=== PATIENT | female | born 1945 | race Caucasian/White ===

== ENCOUNTER 2025-04-13 08:43 | Emergency (ER) | payer MEDICARE, SELFPAY ==
--- OUTSIDE RECORDS SUMMARY | 2025-02-24 06:15 | XMS_ITS ---
Author Organization [facility] Address [address] [place] [address] Care Team Providers Care Rotary Drill Operator Name Role Phone Ofelia Hansen Primary Care Provider Unavailabl Humphrey Mcconnell Unavailable [phone] Encounters Encounter Location Date Provider Diagnosis [address] [address] 02/24/2025 Humphrey Parekh Plan Of Treatment Next Appt Details Provider Name:Humphrey Parekh , 04/28/2025 12:30:00 PM, [address] [place] [address], [phone], Progress Notes * Diann GALLEGO MDOB: [birth year] (79 yo F)Acc No.[id number]:02/24/2025 Progress Notes Patient: Charlotte JOSEMoniqueDiann Fazal Provider: Holli Parekh DPM :1945 A ge:79 Y S ex:Female Date:02/24/2025 Address:[address] [id number] Pcp:Ofelia Hansen Subjective: * Chief Complaints: * * Medical History: Objective: * Vitals: Assessment: Plan: * Treatment: * Images: * The named appointment provid er may or may not be the originator of this progress note, and it is not deemed complete until electronically signed by the appointment provider. Sign off status: Pending * Provider: Holli Parekh DPM Date: 0 02/24/2025 Generated for Charleen ogden/Kecia/Juanjo on: 0 04/13/2025 10:47 AM EDT
--- NOTE | ~2025-04-13 | US_ITS ---
EXAMINATION: US TRIPLEX LOWER EXTREMITY, RIGHT CLINICAL INFORMATION: Pain and swelling, right lower extremity COMPARISON: None available. TECHNIQUE: Color-flow triplex imaging with spectral analysis and compression Doppler were performed on the right lower extremity. FINDINGS: Respiratory variation, normal compression and augmented flow are demonstrated in the interrogated right common femoral vein, superficial femoral vein, profunda femoral vein, popliteal vein and midcalf peroneal and posterior tibial venous segments . There is no Azevedo's cyst. US/US venous duplex LE RT IMPRESSION: No acute deep venous thrombosis interrogated veins, right lower extremity. Negative for DVT. Electronically signed by: Jose L العلي MD 04/13/2025 11:25 AM EDT
[2025-04-13 09:07] VITALS: BP 129/65; PULSE 71; RESP 18; TEMP 36.8; O2SAT 93; BMI 28.7
--- NOTE | 2025-04-13 09:18 | ED.GENADULT ---
HPI - General Adult General Chief complaint: General Medical Stated complaint: Blood clot? Sent by Time Seen by Provider: 04/13/25 10:04 Related Data Previous Rx's ?Medication ?Instructions ?Recorded cephalexin 500 mg capsule 500 mg PO QID #28 caps 04/13/25 Allergies Allergy/AdvReac Type Severity Reaction Status Date / Time tetracycline Allergy Hives Verified 04/13/25 09:11 budesonide (From Symbicort) AdvReac Unknown Verified 04/13/25 09:11 formoterol (From Symbicort) AdvReac Unknown Verified 04/13/25 09:11 [facility] Social History Social History Advance Directives: No Advance Directives Information Provided: Yes Physical Exam ED Vital Signs: Vital Signs - 24 hr 04/13/25 09:07 Temperature 98.2 F Pulse Rate 71 Respiratory Rate 18 Blood Pressure 129/65 Pulse Oximetry 93 Oxygen Delivery Method Room Air BMI result Body Mass Index 28.7 Course Course Course Narrative: 79 yo female with PMH afib and asthma of now with inflammed area on R thigh for a few days she was sent by PCP for DVT US. She is already on eliquis. She notes it is red raised and warm to touch. It is not itchy. She has no CP/SOB. labs, DVT study this is a RAPID medical screening exam the rest of the history and physical exam is to be done by the main provider. ALEJANDRO 04/13/25 919am Medical Decision Making Lab Data 04/13/25 09:31 04/13/25 09:31 Labs: Lab Results 04/13/25 Range/Units 09:31 WBC 11.5 H (4.8-10.8) X10*3/uL RBC 4.63 (4.20-5.50) X10*6/uL Hgb 14.6 (12.0-16.0) g/dl Hct 41.2 (37.0-47.0) % MCV 89.0 (80.0-98.0) fL MCH 31.5 (27.0-33.0) pg MCHC 35.4 H (31.0-35.0) g/dl RDW 12.8 (11.0-16.0) % Plt Count 218 (160-400) X10*3/uL MPV 10.5 (9.4-12.3) fL Absolute Nucleated RBC 0.000 (0.0-0.012) X10*3/uL Nucleated RBC % (auto) 0.0 (0.0-0.2) /100WBC PT 16.2 H (10.9-12.4) SEC INR 1.4 H (0.9-1.1) Sodium 129 L (135-145) mmol/L Potassium 3.7 (3.3-5.1) mmol/L Chloride 90 L (96-108) mmol/L Carbon Dioxide 31 H (22-29) mmol/L Anion Gap 12 (12-20) BUN 14 (9-16) mg/dL Creatinine 0.90 (0.5-1.4) mg/dL Estim Creat Clear Calc 53.3 Estimated GFR > 60 Random Glucose 114 (60-115) mg/dL Calcium 9.4 (8.4-10.2) mg/dL Magnesium 1.5 L (1.6-2.6) mg/dL Total Bilirubin 1.5 H (0.0-1.0) mg/dL AST 37 H (5-31) U/L ALT 22 (0-31) U/L Alkaline Phosphatase 49 (39-117) U/L Total Protein 7.0 (6.5-8.0) g/dL Albumin 4.0 (3.5-5.0) g/dL Discharge Plan Discharge Clinical Impression: Cellulitis of leg, right, Acute hyponatremia Patient Disposition: Home, Self-Care Instructions: Cellulitis (ED), Hyponatremia (ED) Additional Instructions: Your ultrasound does not show any evidence of blood clots. It appears that you have a mild skin infection called cellulitis. I recommend taking cephalexin 4 times daily for 1 week. You may continue warm compresses Incidentally, your blood work showed that your sodium was low in your magnesium was low. This is likely due to drinking lots of fluids well being on 2 diuretics, spironolactone and hydrochlorothiazide I recommend drinking no more than 4 glasses of water per day and call your doctor to schedule repeat labs next week to check your sodium and magnesium Prescriptions: New cephalexin 500 mg capsule 500 mg PO QID Qty: 28 0RF Print Language: Solomon Islander
[2025-04-13 09:39] LABS: Hematocrit 41.2 % (37.0-47.0); Hemoglobin 14.6 g/dl (12.0-16.0); Mean Corpuscular HGB Conc 35.4 g/dl (31.0-35.0); Mean Corpuscular Hemoglobin 31.5 pg (27.0-33.0); Mean Corpuscular Volume 89.0 fL (80.0-98.0); NRBC Abs Auto 0.000 X10*3/uL (0.0-0.012); NRBC Pct Auto 0.0 /100WBC (0.0-0.2); Platelet Count 218 X10*3/uL (160-400); Red Blood Count 4.63 X10*6/uL (4.20-5.50); White Blood Count 11.5 X10*3/uL (4.8-10.8)
[2025-04-13 09:44] LABS: INTERNATIONAL NORM RATIO 1.4 (0.9-1.1); Prothrombin Time 16.2 SEC (10.9-12.4)
[2025-04-13 10:00] VITALS: BP 122/62; PULSE 74; RESP 17; TEMP 36.8; O2SAT 94
[2025-04-13 10:03] LABS: Alanine Aminotransferase 22 U/L (0-31); Albumin Level 4.0 g/dL (3.5-5.0); Alkaline Phosphatase 49 U/L (39-117); Anion Gap 12 (12-20); Aspartate Amino Transferase 37 U/L (5-31); Blood Urea Nitrogen 14 mg/dL (9-16); Calcium 9.4 mg/dL (8.4-10.2); Carbon Dioxide 31 mmol/L (22-29); Chloride 90 mmol/L (96-108); Creatinine Clr Calc Pharmacy 53.3; Estimated Glomerular Filt Rate > 60; Magnesium 1.5 mg/dL (1.6-2.6); Potassium 3.7 mmol/L (3.3-5.1); Sodium 129 mmol/L (135-145); Total Protein 7.0 g/dL (6.5-8.0)
--- OUTSIDE RECORDS SUMMARY | 2025-04-13 10:47 | XMS_ITS | Patient Health Record ---
Author Organization [facility] Address [address] [place] [address] Care Team Providers Care Combo Welder Name Role Phone Ofelia Hansen Primary Care Provider Humphrey Franco Unavailable [phone] Allergies Allergen (clinical drug ingredient) Drug/Non Drug Allergy documented on EMR Reaction Allergy Type Onset Date Status budesonide / formoterol Symbicort Unknown Drug Allergy Active tetracycline Tetracycline HCl Unknown Drug Allergy Active Reason For Referral No Information Medications Medication SIG (Take, Route, Frequency, Duration) Notes Start Date End Date Status Cephalexin 500 MG 1 capsule Orally 4 times a day; Duration: 10 days Active Celecoxib 200 MG 1 capsule with food Orally Once a day; Duration: 30 day(s) Active Omeprazole 20 MG 1 capsule 30 minutes before morning meal Orally Once a day; Duration: 30 day(s) Active Multivitamin Active Mirtazapine 15 MG 1 tablet before bedtime in the evening Orally Once a day Active Metoprolol Succinate ER 25 MG TAKE 1 TABLET BY MOUTH ONCE DAILY Oral; Duration: 30 [id number],Unavaila ble Active Alvesco 160 MCG/ACT 1 puff Inhalation Twice a day Active Vitamin E Not-Taking Atorvastatin Calcium 20 MG 1 tablet Orally Once a day Active Vitamin D3 Active Alendronate Sodium 70 MG 1 tablet 30 minutes before the first food, beverage or medicine of the day with plain water Orally; Duration: 30 day(s) Active Spironolactone-HCTZ 25-25 MG 1 tablet Orally Once a day; Duration: 30 day(s) Active ProAir HFA prn Active Glucosamine Active Eliquis 5 MG as directed Orally Active Clopidogrel Bisulfate 75 MG 1 tablet Orally Once a day Not-Taking amLODIPine Besylate 5 MG 1 tablet Orally Once a day Not-Taking Immunizations Vaccine Route Administration Date Status Comme nts Influenza Unknown 04/17/2022 Administered Influenza Unknown 05/17/2024 Administered Pneumococcal Unknown 04/17/2022 Administered COVID-19 Pfizer BioNTech Vaccine Unknown 05/18/2021 Administered 1st 09/21/2020 2nd 10/12/2020 Social History Tobacco Use: Social History Observation Description Date Details (start date - stop date) Never Smoker NA - NA Tobacco use other than smoking: Question Answer Notes Are you an other tobacco user? No Tobacco Control (Standard) Question Answer Notes Tobacco use: Nonsmoker Additional Findings: Tobacco non-user Current no nsmoker AUDIT-C (Standard) Question Answer Notes Did you have a drink containing alcohol in the p ast year? No Points 0 Interpretation Negative Problems Problem Type SNOMED Code ICD Code Onset Dates Problem Status W/U Status Risk Notes Problem Bilateral atherosclerosis of arteries of lower limbs (disorder) ([id number] ) Atherosclerosis of galena artery of both lower extremities, with unspecified presence of clinical manifestation (I70.203) Active confirmed Q7(A), Q8(2B), Q9(1B,2 C) Vital Signs Blood pressure diastolic 60 mm Hg 02/03/2025 Height 5 ft 7in in 02/03/2025 Blood pressure systolic 128 mm Hg 02/03/2025 Weight 172 lbs 02/03/2025 BMI 26.94 kg/m2 02/03/2025 Procedures Procedure Date Ordered Date Performed Result Body Sit e 21702-FZXOBCB NAIL, 6 OR MORE 04/15/2024 N/A 79167-Tgfl Destruction, 1-14 04/15/2024 N/A 44067-Wymvdjhv Plate 04/15/2024 N/A 35102-ZMJH SKIN LESIONS, 2 TO 4 04/15/2024 N/A 24912-Nqju Destruction, 1-14 05/17/2024 N/A 68209-OVZNRGR NAIL, 6 OR MORE 07/22/2024 N/A 21406-Cldt Destruction, 1-14 07/22/2024 N/A 44903-Eabfhgme Plate 07/22/2024 N/A 54691-VEJG SKIN LESIONS, 2 TO 4 07/22/2024 N/A 17342-EYXFWRV NAIL, 6 OR MORE 10/25/2024 N/A 34726-UODD SKIN LESIONS, OVER 4 10/25/2024 N/A 59811-LLYLTTR NAIL, 6 OR MORE 01/24/2025 N/A 97354-RCXN SKIN LESIONS, OVER 4 01/24/2025 N/A 98837 I&D ABSCESS- SIMPLE,SINGLE 02/03/2025 N/A Encounters Encounter Location Date Provider Diagnosis [address] [address] 04/15/2024 Humphreynacho McdonaldIzabella Atherosclerosis of galena artery of both lower extremities, with unspecified presence of clinical manifestation I70.203 ; Plantar wart B07.0 ; Tinea unguium B35.1 ; Pain in right toe(s) M79.674 ; Pain in left toe(s) M79.675 ; Pain in right foot M79.671 and Ingrown nail L60.[address] [address] 05/17/2024 Humphrey Izabella Right foot pain M79. 671 and Plantar wart B07.[address] [address] 07/22/2024 Humphrey Izabella Atherosclerosis of galena artery of both lower extremities, with unspecified presence of clinical manifestation I70.203 ; Plantar wart B07.0 ; Tinea unguium B35.1 ; Pain in right toe(s) M79.674 ; Pain in left toe(s) M79.675 ; Pain in right foot M79.671 and Ingrown nail L60.[address] [address] 10/25/2024 Humphrey Izabella Atherosclerosis of galena artery of both lower extremities, with unspecified presence of clinical manifestation I70.203 ; Tinea unguium B35.1 ; Pain in right toe(s) M79.674 and Pain in left toe(s) M79.[address] [address] 01/24/2025 Humphrey Izabella Atherosclerosis of galena artery of both lower extremities, with unspecified presence of clinical manifestation I70.203 ; Tinea unguium B35.1 ; Pain in right toe(s) M79.674 and Pain in left toe(s) M79.[address] [address] 02/03/2025 Humphrey Parekh Cellulitis of toe of right foot L03.031 ; Atherosclerosis of galena artery of both lower extremities, with unspecified presence of clinical manifestation I70.203 ; Abscess of right foot L02.611 and Pain of toe of right foot M79.[address] [address] 02/02/2025 Humphrey Parekh [address] [address] 02/13/2025 Humphrey Parekh Assessments Encounter Date Diagnosis (ICD Code) Assessment Notes Treatment Notes Treatment Clinical Notes Section Notes 04/15/2024 Plantar wart (ICD-10 - B07.0) 04/15/2024 Atherosclerosis of galena artery of both lower extremities, with unspecified presence of clinical manifestation (ICD-10 - I70.203) 05/17/2024 Plantar wart (ICD-10 - B07.0) 05/17/2024 Right foot pain (ICD-10 - M79.671) 07/22/2024 Plantar wart (ICD-10 - B07.0) 07/22/2024 Atherosclerosis of galena artery of both lower extremities, with unspecified presence of clinical manifestation (ICD-10 - I70.203) 10/25/2024 Tinea unguium (ICD-10 - B35.1) 10/25/2024 Atherosclerosis of galena artery of both lower extremities, with unspecified presence of clinical manifestation (ICD-10 - I70.203) Q7(A), Q8(2B), Q9(1B,2C) 01/24/2025 Tinea unguium (ICD-10 - B35.1) 01/24/2025 Atherosclerosis of galena artery of both lower extremities, with unspecified presence of clinical manifestation (ICD-10 - I70.203) Q7(A), Q8(2B), Q9(1B,2C) 02/03/2025 Cellulitis of toe of right foot (ICD-10 - L03.031) 02/03/2025 Atherosclerosis of galena artery of both lower extremities, with unspecified presence of clinical manifestation (ICD-10 - I70.203) Q7(A), Q8(2B), Q9(1B,2C) 10/25/2024 Pain in right toe(s) (ICD-10 - M79.674) 01/24/2025 Pain in right toe(s) (ICD-10 - M79.674) 07/22/2024 Tinea unguium (ICD-10 - B35.1) 04/15/2024 Tinea unguium (ICD-10 - B35.1) 04/15/2024 Pain in right toe(s) (ICD-10 - M79.674) 07/22/2024 Pain in right toe(s) (ICD-10 - M79.674) 01/24/2025 Pain in left toe(s) (ICD-10 - M79.675) 10/25/2024 Pain in left toe(s) (ICD-10 - M79.675) 02/03/2025 Pain of toe of right foot (ICD-10 - M79.674) 02/03/2025 Abscess of right foot (ICD-10 - L02.611) Patient Educated with: WOUND CARE INSTRUCTIONS. pdf (WOUND CARE INSTRUCTIONS. pdf) 07/22/2024 Pain in left toe(s) (ICD-10 - M79.675) 04/15/2024 Pain in left toe(s) (ICD-10 - M79.675) 04/15/2024 Pain in right foot (ICD-10 - M79.671) 07/22/2024 Pain in right foot (ICD-10 - M79.671) 04/15/2024 Ingrown nail (ICD-10 - L60.0) 07/22/2024 Ingrown nail (ICD-10 - L60.0) 02/03/2025 Other Plan Of Treatment Pending Test Test Name Order Date 35953-FLJXQXM NAIL, 6 OR MORE 06/22/2020 64035-GMQDXOG NAIL, 6 OR MORE 07/23/2021 48885-BCKNHGT NAIL, 6 OR MORE 04/01/2022 23823-OIHHCFJ NAIL, 6 OR MORE 07/01/2022 51350-GKZKFWW NAIL, 6 OR MORE 09/09/2022 87578-VJEBCNJ NAIL, 6 OR MORE 11/14/2022 33098-OHBESES NAIL, 6 OR MORE 01/30/2023 02341-KWVNHSE NAIL, 6 OR MORE 04/28/2023 90530-UUUXJCT NAIL, 6 OR MORE 07/21/2023 03810-XPJCIVL NAIL, 6 OR MORE 01/19/2024 78515-HSNGYNT NAIL, 6 OR MORE 04/15/2024 34772-WWSJEEA NAIL, 6 OR MORE 11/06/2023 76838-JYVFQVE NAIL, 6 OR MORE 07/22/2024 50229-DTXMSTM NAIL, 6 OR MORE 10/25/2024 53841-JWGWDJY NAIL, 6 OR MORE 01/24/2025 05322-Nbku Destruction, 1-14 07/22/2024 42436-Yvlc Destruction, 1-14 11/06/2023 66325-Kwwu Destruction, 1-14 05/17/2024 20971-Kycc Destruction, 1-14 04/15/2024 80444-Bdhz Destruction, 1-14 01/19/2024 45332-Bvih Destruction, -14 07/21/2023 59292-Wqrw Destruction, 1-14 06/24/2023 39306-Ktty Destruction, 1-14 08/25/2023 77751-Jaic Destruction, -14 04/28/2023 89681-Wkid Destruction, 1-14 01/30/2023 97977-Tmvg Destruction, 1-14 11/14/2022 49558-Zksx Destruction, 1-14 09/09/2022 34242-Lcmz Destruction, -14 07/01/2022 20136-Keov Destruction, -14 04/01/2022 94803-Sqib Destruction, -14 07/23/2021 94665-Suel Destruction, 1-14 06/22/2020 57219-Kkxurndt Plate 01/19/2024 94857-Nvxizllc Plate 04/15/2024 41414-Khgoxdxt Plate 11/06/2023 73883-Kzknlqpu Plate 07/22/2024 39990 I&D ABSCESS- SIMPLE,SINGLE 025 24088-LDXJ SKIN LESIONS, OVER 4 01/25/20 25 23805-NURD SKIN LESIONS, OVER 4 10/26/19 25 32798-DTEJ SKIN LESIONS, 2 TO 4 07/22/20 77303-XOBC SKIN LESIONS, 2 TO 4 11/06/19 24 47660-JHAO SKIN LESIONS, 2 TO 4 04/15/20 24 65660-EYQD SKIN LESIONS, 2 TO 4 01/19/20 33438-GYMU SKIN LESIONS, 2 TO 4 07/21/20 98648-QBEX SKIN LESIONS, 2 TO 4 07/01/20 01024-KZWN SKIN LESIONS, 2 TO 4 09/09/19 23 93677-RZUJ SKIN LESIONS, 2 TO 4 11/15/19 23 77311-IVBB SKIN LESIONS, 2 TO 4 01/31/20 23 33924-NWWN SKIN LESIONS, 2 TO 4 04/28/20 Next Appt Details Provider Name:Humphrey Parekh , 04/28/2025 12:30:00 PM, [address] [place], [address], Insurance Providers Payer Name Payer Address Payer Phone Subscriber Number Group Number Insured Name Patient Relationship to Insured Coverage Start Date Coverage End Date [employer] [address] [place] [address] [id number] Diann Ang Self - patient is the insured 4 Medical (General) History Medical History History ICD Code Arthritis asthma Heart disease High blood pressure Sciatica Reflux Stomach ulcer Chicken pox Stroke covid-19 Surgical History Surgery Date(Month/Year) Hospitalization History Reason Date(Month/Year) [facility]- compression fracture 03/24/20 admitted to [facility] for vertical , there was discover pt had too many strokes in july. 08/2015 [facility] ER- covid, breathing troubles
[2025-04-13 11:56] VITALS: BP 132/74; PULSE 74; RESP 15; TEMP 36.8; O2SAT 95
[2025-04-13 12:01] VITALS: BP 132/74; PULSE 74; RESP 15; TEMP 36.8; O2SAT 95
== END 2025-04-13 12:03 | disposition home or self-care (01) ==
PROVIDERS: Emergency Provider Emergency Medicine; PCP Nurse Practitioner Family
DX: L03.115 Cellulitis of right lower limb (principal); I48.91 Unspecified atrial fibrillation; Z86.79 Personal history of other diseases of the circulatory system; Z79.01 Long term (current) use of anticoagulants; Z79.899 Other long term (current) drug therapy
CPT/HCPCS: 36415; 80053; 83735; 85027; 85610; 93971; 99284

== ENCOUNTER → 2025-04-13 09:19 | Outpatient (BNV) | payer MEDICARE, SELFPAY | PROVIDERS: PCP Nurse Practitioner Family; Visit Provider Radiology Diagnostic Radiology | DX: R22.41 Localized swelling, mass and lump, right lower limb (principal); M79.604 Pain in right leg | CPT/HCPCS: 93971 ==